=== PATIENT | female | born 1935 | race Caucasian/White ===

== ENCOUNTER 2017-03-22 11:14 | Outpatient (CLI) | payer MEDICARE, OTHER | END 2017-03-22 11:15 | disposition short-term general hospital (02) | LOC: EMS 11:14 | PROVIDERS: ATTEND Surgery | DX: M79.605 Pain in left leg (principal); W18.09XA Striking against other object with subsequent fall, initial encounter; Y93.9 Activity, unspecified; Y92.009 Unspecified place in unspecified non-institutional (private) residence as the place of occurrence of the external cause | CPT/HCPCS: A0425; A0427; A0888 ==